=== PATIENT | female | born 1975 ===

== ENCOUNTER → 2016-03-03 | Outpatient (REF) ==
--- NOTE | 2016-03-03 13:26 | Diagnostic Imaging Report ---
INDICATION: Positive TB skin test. PA and lateral views of the chest are obtained. There is no previous study for comparison. FINDINGS: Heart size and pulmonary vascularity are within normal limits. There are minimal bilateral parenchymal lung calcifications which may be result of previous granulomatous infection. There is no evidence of infiltrate, pneumothorax or significant pleural fluid. IMPRESSION: Small bilateral parenchymal calcifications in the lungs suggest previous granulomatous infection. No active infiltrate is identified. Dictated by: Dictated on workstation # [id number]
== END ==
LOC: OCC 12:58
PROVIDERS: ATTEND Nurse Practitioner Family
CPT/HCPCS: 71020